=== PATIENT | female | born 1990 | race African-American/Black ===

== ENCOUNTER 2018-05-16 15:40 | Inpatient (IN) | payer SELFPAY ==
--- NOTE | 2018-05-16 16:28 | EDPHY ---
HPI/HX/ROS/PE/MDM Narrative: CHIEF COMPLAINT: Unable to bend right arm HISTORY OF PRESENT ILLNESS: The patient is a 28 y/o female complaining of difficulty bending her right arm due to swelling after working out on (2 days ago) and today. In 2014 she developed rhabdomyolysis in her arms after working out too much. After being diagnosed with rhabdo she was admitted to the hospital for one night and given fluids. She did not need surgery at that time. On , 2 days ago, she did not notice any significant pain after working out (TRX upper body workout). She then had a rest day on Friday but worked out today (primarily boxing). After working out today she noticed significant swelling and pain of her right upper arm and mild pain in her left arm. She has also had a tingling sensation in her right arm. Due to her history of rhabdo she decided to present to the emergency department. She is working out with a rehab trainer and primarily does body weight exercises. She does take NLA for Her pre-workout and recovery. Denies taking creatin and denies steroids. No fever, chills, chest pain, shortness of breath, palpitations, vomiting, diarrhea, urinary complaints, headache, lightheadedness. REVIEW OF SYSTEMS: Aside from elements discussed in the HPI, a comprehensive 10-point review of systems was reviewed and is negative. PAST MEDICAL HISTORY: Rhabdomyolysis SOCIAL HISTORY: Friend at bedside VITAL SIGNS: Reviewed by me GENERAL: Well-developed, well-nourished, resting comfortably in no respiratory distress. HEENT: Atraumatic. Eyes: No icterus, no injection. Mouth: moist mucous membranes. No erythema or lesions. Neck: supple with no adenopathy. LUNGS: Clear to auscultation bilaterally, no wheezes, rhonchi or rales. CARDIAC: Regular rate and rhythm, no rubs, murmurs or gallops. ABDOMEN: Soft, nontender, nondistended, bowel sounds normal. BACK: No CVA tenderness. EXTREMITIES: Swelling and firmness of the right biceps, soft. Compartments are soft. Biceps tendon intact on exam, good strength with biceps flexion. Unable to fully extend right arm at biceps due to pain. Pulses are equal distally. Brisk cap refill. Left arm: slight tenderness over the biceps, no significant swelling. Compartment soft. NEURO: Alert and oriented, grossly nonfocal. SKIN: Warm and dry, no rash. PSYCHIATRIC: Normal mentation, no agitation. Portions of this note were transcribed by a medical secretary receptionist. I personally performed a history, physical exam, medical decision making, and confirmed accuracy of information the transcribed note. ED Course: The patient is a 28 y/o female with a history of rhabdomyolysis complaining of a tingling sensation and difficulty flexing and extending her right arm due to swelling after doing an upper body work out on (2 days ago) and boxing workout today. On exam she has swelling and firmness of the right biceps, intact biceps tendon, normal strength with biceps flexion. Her pulses are equal distally. Labs ordered; 1L IV NS. CPK results from lab delayed due to dilution; suspect it will be significantly elevated. Second liter of NS ordered. 1814: Patient's creatinine is greater than 30,000. Advised patient and she understands need for admission. No tingling, numbness in right hand; brisk cap refill, compartments remain soft. 182: I consulted with the hospitalist service, Dr. Vergara accepts admission of this patient. 1824: I consulted with Dr. Gomez's, orthopedic surgeon, [place] regarding this patient. Asked to evaluate patient for compartment syndrome of upper extremity. They will consult this evening. MDM: Diff dx considered included but not limited to rhabdomyolysis, compartment syndrome, biceps tendon rupture, renal failure, muscle sprain, muscle tear. - Data Points Laboratory Results: Laboratory Results 05/16/18 17:00 05/16/18 17:00 Medications Given: Acetaminophen (Tylenol) 650 mg PO Q4HRS PRN PRN Reason: Pain, Mild/Fever, Can Take PO Stop: 11/12/18 20:16 Last Admin: 05/17/18 21:42 Dose: 650 mg Hydrocodone Bitart/Acetaminophen ([place] 5/325) 1 tab PO Q4HRS PRN PRN Reason: Pain, Moderate Able to Take PO Stop: 05/27/18 23:47 Last Admin: 05/17/18 23:53 Dose: 1 tab Sodium Chloride (Ns) 1,000 mls @ 200 mls/hr IV CONT LOUANN Stop: 11/12/18 20:29 Last Admin: 05/18/18 10:03 Dose: 1,000 mls Discontinued Medications Sodium Chloride (Ns) 1,000 mls @ 0 mls/hr IV ONCE ONE; Wide Open PRN Reason: Protocol Stop: 05/16/18 16:44 Last Admin: 05/16/18 17:05 Dose: 1,000 mls Sodium Chloride (Ns) 1,000 mls @ 0 mls/hr IV ONCE ONE; Wide Open PRN Reason: Protocol Stop: 05/16/18 18:04 Last Admin: 05/16/18 18:20 Dose: 1,000 mls Sodium Chloride (Ns) 1,000 mls @ 0 mls/hr IV ONCE ONE PRN Reason: Wide Open Stop: 05/16/18 20:26 Last Admin: 05/16/18 20:35 Dose: 1,000 mls General Time Seen by Provider: 05/16/18 16:25 Initial Vital Signs: Initial Vital Signs Temperature (C) 36.8 C 05/16/18 16:00 Heart Rate 91 05/16/18 16:00 Respiratory Rate 16 05/16/18 16:00 Blood Pressure 98/79 L 05/16/18 16:00 O2 Sat (%) 97 05/16/18 16:00 O2 Delivery Mode Room Air Allergies/Adverse Reactions: aloe vera Allergy (Intermediate, Verified 05/16/18 16:06) Swelling/neck,face,throat Home Medications: Medication Instructions Recorded NK [No Known Home Meds] 05/16/18 Departure - Departure Disposition: [facility] Inpatient Acute Clinical Impression: Rhabdomyolysis Qualifiers: Rhabdomyolysis type: traumatic Encounter type: initial encounter Qualified Code (s): T79.6XXA - Traumatic ischemia of muscle, initial encounter Condition: Fair Report Scribed for: Mandy Concepcion Report Scribed by: Rajwinder Madden Date of Report: 05/16/18 Time of Report: 16:28
[2018-05-16] MEDS ORDERED: NS 1,000 ML IV ONE ×3 (16:43→20:25)
[2018-05-16 17:13] LABS: PLATELET COUNT 181 10^3/uL (150-400)
[2018-05-16 18:16] LABS: CREATINE KINASE > 30000 IU/L (0-156)
--- NOTE | 2018-05-16 19:35 | PDCONSULT ---
Art Gallery Director Note: Orthopedic Surgery Consult Dr. Gomez was consulted by ER to examine Sherita Hernández. (See ER note for full detail) She presents to ER with Rhabdomyolysis. She has a sore and partially swollen right biceps. We were asked to examine biceps injury vs compartment syndrome. Of note patient states she had a similar episode of rhabdo a few years ago. Patient states she is feeling much better since her initial symptoms two days ago. She denies any CP, SOB, numbness or tingling of her fingers. PHYSICAL EXAM RUE mild swelling noted. Compartments appear soft. Distal neurovasculature is intact , and no concerning ligamint/muscle signs as she has full ROM shoulder elbow and wrist. ASSESSMENT: Rule out compartment syndrome. Right upper arm pain. Rhabdomyolysis PLAN: Dr. Gomez examined patient fully. No concerning signs for compartment syndrome at this time. No obvious biceps or tendon issues from exam. Would recommend resting from upper body workout for 1-2 weeks. She is being admitted to hospitalist team to treat her Rhabdo WE appreciate the consult, but no further orthopedic care is warranted at this time. Please reach out with any issues or concerns. Delano Rosa PA-C and Dr. Gomez (Orthopedic Surgery)
[2018-05-16] MEDS ORDERED: ONDANSETRON DISINTEGRATING 4 MG TAB PO PRN (20:17)
[2018-05-16] MEDS ORDERED: ONDANSETRON 4 MG/2 ML VIAL IVP PRN (20:17)
--- NOTE | 2018-05-16 21:32 | GHP ---
DATE OF ADMISSION: 05/16/2018 CHIEF COMPLAINT: Right arm pain, concern for rhabdomyolysis. HISTORY OF PRESENT ILLNESS: A 28-year-old female, who had an episode of rhabdomyolysis in 2014 due t o a vigorous workout. She worked on which was pretty significant and then tried to do some boxing today but she had a lot of right arm pain. She came to the emergency department because she h as had rhabdo in the past and this felt like it. She denies any other symptoms really. REVIEW OF SYSTEMS: A 10-point review of systems was obtained and negative. PAST MEDICAL HISTORY: Rhabdomyolysis. MEDICATIONS: None. SOCIAL HISTORY: No smoking or alcohol. FAMILY HISTORY: Negative. PHYSICAL EXAMINATION: VITAL SIGNS: Afebrile, blood pressure is 119/58, heart rate 74, oxygen satura tion 94% on room air. GENERAL: The patient is well developed, no apparent distress. HEENT: Nonict jesús sclerae. Extraocular movements intact. Moist mucous membranes. NECK: Supple. No thyromegaly . LUNGS: Good effort. Clear to auscultation bilaterally. CARDIOVASCULAR: Regular rate and rhythm . No murmurs, rubs, or gallops. ABDOMEN: Positive bowel sounds. Soft, nontender, nondistended. E XTREMITIES: Right biceps are more swollen than the left but compartment feels soft. NEUROLOGIC: Al ert and oriented x3. Moving all 4 extremities equally. PSYCH: Normal mood and affect. LABS: CBC is essentially normal. Chemistry does show slightly elevated creatinine 1.2. CK is over 30,000. ASSESSMENT: This is a 28-year-old female presenting with rhabdomyolysis. PLAN: She has already received 2 L in the ER. Give another L wide open, then will run isotonic flui ds at 300 cc an hour. We will continue to monitor creatinine. I did ask the lab to quantify her CPK starting in the morning to get a better idea of what direction she is going in. We will watch her jered dorman function carefully. /[id number]/MODL
[2018-05-16] MEDS: NS 1,000 ML IV SCH (21:45)
[2018-05-17] MEDS: NS 1,000 ML IV SCH ×2 (02:01→21:46)
[2018-05-17] MEDS: ACETAMINOPHEN 325 MG TAB PO PRN ×3 (02:09→21:42)
[2018-05-17 06:35] LABS: CREATINE KINASE 29391 IU/L (0-156)
--- NOTE | 2018-05-17 07:23 | PDMN ---
Medical Necessity Medical necessity: Pt meets inpt criteria per MD order and [facility] Musculoskeletal Disease, rhabdomyolysis, 2 days. 28 y/o w/hx rhabdomyolysis in 2014 presented w/R arm pain, admitted w/rhabdomyolysis, CK >30,000, CK-MB fraction 10.9, creatinine 1.2. IV fluids, ortho consut, follow labs/kidney function.
--- NOTE | 2018-05-17 13:53 | HOSPPROG ---
Hospitalist Progress Note Assessment/Plan: #Rhabdo: Cr improved, good UOP. Cont aggressive IVFs -advised caution with nutritional supplement #HAYLEE: improved with fluids #Diet: regular #Disp: inpatient admission for rhabo, IVFs Subjective: swelling right arm improved Objective: Vital Signs Temp Pulse Resp BP Pulse Ox 36.7 C 77 16 103/64 96 05/17/18 07:07 05/17/18 07:07 05/17/18 07:07 05/17/18 07:07 05/17/18 07:07 Laboratory Results 05/17/18 04:54 05/16/18 05/17/18 05/18/18 05:59 05:59 05:59 Intake Total 700 Output Total 1200 Balance -500 - Time Spent With Patient Time Spent with Patient: greater than 35 minutes Time Spent with Patient: Greater than 35 minutes spent on this patients care, greater than 50% of time spent counseling, educating, and coordinating care regarding the above mentioned plan. - Physical Exam Constitutional: no apparent distress Eyes: PERRL Ears, Nose, Mouth, Throat: moist mucous membranes Cardiovascular: regular rate and rhythym Respiratory: no respiratory distress Gastrointestinal: normoactive bowel sounds Genitourinary: no bladder fullness Skin: warm Musculoskeletal: full muscle strength, other (good radial pulse, normal cap refill. Right upper arm mildly swelling) Neurologic: AAOx3 Psychiatric: interacting appropriately ICD10 Worksheet Patient Problems: Problems Problem Status Onset Rhabdomyolysis Acute
--- NOTE | 2018-05-17 15:29 | ASMTCMCOM ---
CM Note CM Note Notes: Pt admitted to hospital for Rhadomyolysis, she is otherwise healthy and independent and will dc home whem medically stable. CM available for any changes. DC Plan: Independent Date Signed: 05/17/2018 03:29 PM Electronically Signed By:Leah Rabago RN
[2018-05-17] MEDS ORDERED: HYDROCODONE/APAP 10/325 TAB PO PRN (23:48)
[2018-05-17] MEDS ORDERED: HYDROCODONE/APAP 5/325 TAB PO PRN (23:48)
[2018-05-18] MEDS: NS 1,000 ML IV SCH ×4 (04:32→23:13)
[2018-05-18 06:16] LABS: CREATINE KINASE 22849 IU/L (0-156)
--- NOTE | 2018-05-18 09:30 | HOSPPROG ---
Hospitalist Progress Note Assessment/Plan: 28 yo F w rhabdomyolysis Rhabdo: Cr improved, good UOP. Cont aggressive IVFs advised caution with nutritional supplement HAYLEE: improved with fluids Diet: regular Disp: inpatient admission for rhabo, IVFs Subjective: CK trending down. less biceps pain Objective: Vital Signs Temp Pulse Resp BP Pulse Ox 36.8 C 60 14 122/84 H 95 05/18/18 08:00 05/18/18 08:00 05/18/18 08:00 05/18/18 08:00 05/18/18 08:00 Laboratory Results 05/18/18 04:57 05/17/18 05/18/18 05/19/18 05:59 05:59 05:59 Intake Total 700 7425 Output Total 1200 3000 600 Balance -500 4425 -600 - Physical Exam Constitutional: no apparent distress, appears nourished Eyes: PERRL, anicteric sclera Ears, Nose, Mouth, Throat: moist mucous membranes, hearing normal Cardiovascular: regular rate and rhythym, no murmur, rub, or gallop Respiratory: no respiratory distress, no rales or rhonchi Gastrointestinal: normoactive bowel sounds, soft, non-tender abdomen Genitourinary: no bladder fullness, No weston in urethra Skin: warm, normal color Musculoskeletal: other (R bicep soft. radial pulse 2+. good cap refill) Neurologic: AAOx3, sensation intact bilaterally ICD10 Worksheet Patient Problems: Problems Problem Status Onset Rhabdomyolysis Acute
[2018-05-19] MEDS: NS 1,000 ML IV SCH (04:13)
[2018-05-19 04:41] VITALS: BP 111/79
[2018-05-19 06:52] LABS: CREATINE KINASE 15546 IU/L (0-156)
--- NOTE | 2018-05-19 08:50 | HOSPPROG ---
Hospitalist Progress Note Assessment/Plan: 28 yo F w rhabdomyolysis Rhabdo: Cr improved, good UOP. Cont aggressive IVFs advised caution with nutritional supplement HAYLEE: improved with fluids Diet: regular Disp: home today > 30 minutes Subjective: ck < 20. renal function normal Objective: Vital Signs Temp Pulse Resp BP Pulse Ox 36.7 C 52 L 15 111/79 96 05/19/18 04:39 05/19/18 04:39 05/19/18 04:39 05/19/18 04:39 05/19/18 04:39 Laboratory Results 05/19/18 05:58 05/18/18 05/19/18 05/20/18 05:59 05:59 05:59 Intake Total 7425 3580 Output Total 3000 4400 Balance 4425 -820 - Physical Exam Constitutional: no apparent distress, appears nourished Eyes: PERRL, anicteric sclera Ears, Nose, Mouth, Throat: moist mucous membranes, hearing normal Cardiovascular: regular rate and rhythym, no murmur, rub, or gallop Respiratory: no respiratory distress, no rales or rhonchi Gastrointestinal: normoactive bowel sounds, soft, non-tender abdomen Genitourinary: No weston in urethra Skin: warm Musculoskeletal: other (R bicep soft) Neurologic: AAOx3 ICD10 Worksheet Patient Problems: Problems Problem Status Onset Rhabdomyolysis Acute
--- NOTE | 2018-05-19 10:21 | GDS ---
[f rep st] DISCHARGE SUMMARY DISCHARGE DIAGNOSES: 1. Rhabdomyolysis. 2. Acute kidney injury. HOSPITAL COURSE: Please see admission history and physical by Dipak Vergara. Patient had biceps pain a nd some concern for compartment syndrome. She was seen by Orthopedics who felt this is not going on. She had a creatinine of 1.2, with normal baseline. She was hydrated. CK trended down. It was 15, 000 on the day of discharge. Creatinine was less than 1. Discharged home. She had been taking a woodall pplement called NLAforHer, which is a body building supplement and has a great deal of stimulants in it. She was advised to discontinue. No other home medicines. /[id number]/MODL
--- NOTE | 2018-05-19 10:50 | ASMTDCNOTE ---
Case Management Discharge Discharge Order Complete? Answers: Yes Patient to Obtain Answers: Independently Medications Transportation Arranged Answers: Family/Friends Discharge Comments Notes: Patient is discharging home independently today. No further needs. Date Signed: 05/19/2018 10:49 AM Electronically Signed By:Candida Bell LCSW
--- NOTE | 2018-05-19 11:01 | ASDISCHSUM ---
Discharge Information Plan Status:Home with No Needs Medically Cleared to Leave:05/18/2018 Discharge Date:05/18/2018 CM D/C Disposition:Home, Routine, Self-Care ADT D/C Disposition: Projected Discharge Date:05/19/2018 12:00 AM Transportation at D/C:Family Discharge Delay Reason: Follow-Up Date:05/19/2018 12:00 AM Discharge Slot:2 - 12:01 pm - 18:00 pm Final Diagnosis:Rhabdomyolysis Placement Information Patient Contact Information Contact Name:VICTORIA Relationship:Mother Address: Work Phone: City: [facility] Phone: [facility]/Zip Code: Email: Financial Information Financial Class:Self-Pay Primary Plan Desc:SELF PAY Primary Plan Number: Secondary Plan Desc: Secondary Plan Number: Assessment Information LACE LACE Length of stay for Answers: 3 days current admission Acuity / Level of Answers: Yes Care: Did the patient have an inpatient admission? Comorbidities - select Answers: Other Notes: Rhadomyolysis all that apply Score: 7 Date Signed: 05/19/2018 10:58 AM Electronically Signed By:Candida Bell LCSW [facility] Progress Note CM Note CM Note Notes: Pt admitted to hospital for Rhadomyolysis, she is otherwise healthy and independent and will dc home whem medically stable. CM available for any changes. DC Plan: Independent Date Signed: 05/17/2018 03:29 PM Electronically Signed By:Leah Rabago RN Case Management Discharge Plan Note Case Management Discharge Discharge Order Complete? Answers: Yes Patient to Obtain Answers: Independently Medications Transportation Arranged Answers: Family/Friends Discharge Comments Notes: Patient is discharging home independently today. No further needs. Date Signed: 05/19/2018 10:49 AM Electronically Signed By:Candida Bell LCSW Intervention Information Intervention Type:*Incorrect Registration Date of Service:05/17/2018 07:25 AM Patient Type:Inpatient Staff Member:RACHELL Davidson, Lala Hours: Discipline: Severity: Comment:
== END 2018-05-19 11:01 | disposition home or self-care (01) | DRG 565 ==
LOC: F3E 20:08 → OBSVTOIN 20:19
PROVIDERS: ADMIT Internal Medicine; ATTEND Internal Medicine
DX: T79.6XXA Traumatic ischemia of muscle, initial encounter (principal); N17.9 Acute kidney failure, unspecified; E86.9 Volume depletion, unspecified; X50.0XXA Overexertion from strenuous movement or load, initial encounter

== ENCOUNTER 2018-05-20 03:33 | Observation (INO) | payer SELFPAY ==
--- NOTE | 2018-05-20 03:39 | EDPHY ---
H & P Source: Patient - Medical/Surgical History Hx Asthma: No Hx Chronic Respiratory Disease: No Hx Diabetes: No Hx Cardiac Disease: No Hx Renal Disease: No Hx Cirrhosis: No Hx Alcoholism: No Hx HIV/AIDS: No Hx Splenectomy or Spleen Trauma: No Other PMH: Hx Rhabdo. denies otherwise. - Social History Smoking Status: Former smoker Time Seen by Provider: 05/20/18 03:47 HPI/ROS: HPI CHIEF COMPLAINT: Right arm swelling. HISTORY OF PRESENT ILLNESS: 28-year-old female, recently discharged, was initially admitted on the 16 of May it is now the 20 of May. She was admitted for rhabdomyolysis after vigorous workout, as well as acute kidney injury. Her initial CK was 30,000. She was hydrated vigorously did very well. She was also seen evaluated by Orthopedics for possible compartment syndrome of her right bicep region however they did not feel this was compartment syndrome. She presents back to the emergency room tonight out of concern for right arm. She states that it felt tighter and then releases at times. She denies any numbness or tingling, denies severe pain. She states her arm is about the same size it was when she was discharged yesterday. She decided come back to the emergency room tonight as she was told return precautions and that if her arm felt tighter to immediately return. Here in the ER she arrives she appears well nontoxic denies any significant pain. Her right arm is neurovasculary intact with good sensation distally, good radial pulse 2 +, when I palpate down her entire arm her compartments are soft. Her right arm is swollen but very soft. Compartments feel soft. No significant tenderness with exam. Sensations intact distally. She is able to furnace brazer strength appropriately. Past Medical History: Recent admission for rhabdomyolysis, acute kidney injury Past Surgical History: No recent surgery Social History: A lives locally denies drugs alcohol tobacco. Family History: Noncontributory ROS REVIEW OF SYSTEMS: 10 Systems were reviewed and negative with the exception of the elements mentioned in the history of present illness. Exam Constitutional triage nursing summary reviewed, vital signs reviewed, awake/ alert. Eyes normal conjunctivae and sclera, EOMI, PERRLA. HENT normal inspection, atraumatic, moist mucus membranes, no epistaxis, neck supple/ no meningismus, no raccoon eyes. Respiratory clear to auscultation bilaterally, normal breath sounds, no respiratory distress, no wheezing. Cardiovascular rate normal, regular rhythm, no murmur, no edema, distal pulses normal. Gastrointestinal soft, non-tender, no rebound, no guarding, normal bowel sounds, no distension, no pulsatile mass. Genitourinary no CVA tenderness. Musculoskeletal RUE: Her right arm is neurovascular intact with good sensation distally, good radial pulse 2 +, when I palpate down her entire arm her compartments are soft. Her right arm is swollen but very soft. Compartments feel soft. No significant tenderness with exam. Sensations intact distally. She is able to furnace brazer strength appropriately. no midline vertebral tenderness, full range of motion, no calf swelling, no tenderness of extremities, no meningismus, good pulses, neurovascularly intact. Skin pink, warm, & dry, no rash, skin atraumatic. Neurologic awake, alert and oriented x 3, AAOx3, moves all 4 extremities equally, motor intact, sensory intact, CN II-XII intact, normal cerebellar, normal vision, normal speech. Psychiatric normal mood/affect. Heme/Lymph/Immune no lymphadenopathy. Differential Diagnosis: Includes but is not limited to in a particular order compartment syndrome, anxiety, rhabdomyolysis, acute kidney injury Medical Decision Making: Plan for this patient will establish an IV in her left arm, check a CK level, check creatinine. I will additionally touch base with Orthopedics as they saw her during hospitalization. Re-evaluation: Creatinine is 0.9 on her chemistry. CK level is 14K+ 0640AM: Discussed this case in detail with Dr. Briceño. Given the patient's exam right upper extremity he believes that compartment syndrome is very unlikely. She has good distal pulse, good cap refill, warm extremity, no numbness or tingling, soft compartments on exam, no significant pain. 0737: I discussed with the patient about what she is comfortable doing and she is agreeable to stay in the hospital for observation her CK is still over 14,000 , her right arm is soft, good distal pulse good cap refill, warm extremity. I will obtain a ultrasound of her right upper extremity rule out DVT. 0750: Hospitalist service consulted. Plan for admission for right upper extremity swelling and ongoing rhabdomyolysis. Spoke with Dr. Chucho Moreland to admit. Ultrasound of the right upper extremity pending for rule out DVT. (Lawson Ricci) Constitutional: Initial Vital Signs Temperature (C) 36.9 C 05/20/18 03:47 Heart Rate 66 05/20/18 03:47 Respiratory Rate 18 05/20/18 03:47 Blood Pressure 129/90 H 05/20/18 03:47 O2 Sat (%) 99 05/20/18 03:47 O2 Delivery Mode Room Air Allergies/Adverse Reactions: aloe vera Allergy (Intermediate, Verified 05/16/18 16:06) Swelling/neck,face,throat Home Medications: Medication Instructions Recorded Acetaminophen [Tylenol 325mg (*)] 325 mg PO Q6 PRN 05/20/18 Medical Decision Making - Diagnostics Imaging Results: Ultrasound of the right upper extremity shows no evidence for DVT. Reviewed by me and discussed with Dr. Torres (Matias Aldana) - Data Points Laboratory Results: Laboratory Results 05/20/18 04:00 Medications Given: Sodium Chloride (Ns) 1,000 mls @ 75 mls/hr IV CONT LOUANN Stop: 11/16/18 09:14 Last Admin: 05/20/18 11:05 Dose: 1,000 mls Discontinued Medications Sodium Chloride (Ns) 1,000 mls @ 0 mls/hr IV ONCE ONE PRN Reason: Wide Open Stop: 05/20/18 06:47 Last Admin: 05/20/18 06:48 Dose: 1,000 mls Departure - Departure Disposition: [facility] Inpatient Acute Clinical Impression: Swelling of right upper extremity Rhabdomyolysis Qualifiers: Rhabdomyolysis type: non-traumatic Qualified Code(s): M62.82 - Rhabdomyolysis Condition: Fair
[2018-05-20 05:04] LABS: CREATINE KINASE 14928 IU/L (0-156)
[2018-05-20] MEDS ORDERED: NS 1,000 ML IV ONE (06:46)
[2018-05-20] MEDS ORDERED: ONDANSETRON 4 MG/2 ML VIAL IVP PRN (09:01)
[2018-05-20] MEDS ORDERED: ONDANSETRON DISINTEGRATING 4 MG TAB PO PRN (09:01)
[2018-05-20] MEDS ORDERED: oxyCODONE IR 5 MG TAB PO PRN (09:01)
[2018-05-20] MEDS ORDERED: ACETAMINOPHEN 325 MG TAB PO PRN (09:01)
--- NOTE | 2018-05-20 09:30 | GHP ---
[f rep st] HISTORY AND PHYSICAL DATE OF ADMISSION: 05/20/2018 The patient is a pleasant 28-year-old female with a recent admission for rhabdomyolysis, in fact had discharged her yesterday with a CK of 15,500. She has pain and swelling of her right upper extremity , notably the biceps. The etiology was reported to be supplement use in the setting of workouts. Romelia thomason is discharged to home and did well but then developed increased swelling and pain in her right uppe r extremity. She did not work out. It is not clear that she was fully elevating it. She did receive aggressive IV fluids while here. No fever, chills, cough, vomiting and diarrhea. No weakness in her hand. REVIEW OF SYSTEMS: Complete 10-point review of systems conducted and negative except as noted in the HPI. PAST MEDICAL HISTORY: Rhabdomyolysis. ALLERGIES: Aloe vera. HOME MEDICATIONS: Tylenol. SOCIAL HISTORY: No alcohol, no drugs. No tobacco. FAMILY HISTORY: Reviewed and unremarkable. PHYSICAL EXAMINATION: VITAL SIGNS: Temp 36.9, blood pressure 129/90, pulse 66, breathing 18 times a minute, 99% on room air. GENERAL: No acute distress. HEENT: Sclerae anicteric. Oropharynx clear. Mucous membranes moist. NECK: Supple without lymphadenopathy or JVD. LUNGS: Clear to auscultation bilaterally. HEART: S1, S2. ABDOMEN: Soft, nontender, nondistended. EXTREMITIES: The lower extre mities are without edema. Her right upper extremity is edematous but soft. It is not firm. It is n ot exquisitely tender. She has capillary refill that is equal on the right and left hand. Her radia l pulse is somewhat faint on both sides, but equivocal on both sides. There are no skin changes. LABORATORY DATA: Sodium 140, potassium 3.7, chloride 112, bicarb 24, BUN 7, creatinine 0.9, CK is 1 4,928, which is decreased. Right upper extremity ultrasound shows no evidence of DVT. I have discus sed the case with Dr. Lawson Ricci. ASSESSMENT AND PLAN: A 28-year-old female with ongoing rhabdomyolysis and pain. 1. Query compartment syndrome. I do not believe that this patient has compartment syndrome. I thin k that measuring tissue pressures is unnecessary and will elevate it. 2. Rhabdomyolysis. Continue gentle IV fluids and follow. I suspect her CK will continue to trend d own. This is at this point somewhat past the risk of kidney injury. 3. Hypertension, present on admission, has resolved. We will follow. DISPOSITION: Observation status. /[id number]/MODL
[2018-05-20] MEDS: NS 1,000 ML IV SCH ×2 (09:53→11:05)
[2018-05-20 16:17] LABS: CREATINE KINASE 10937 IU/L (0-156)
[2018-05-21 07:31] VITALS: BP 105/69
--- NOTE | 2018-05-21 10:46 | PDDCSUM ---
Discharge Summary Discharge Summary: Date of Admission: 05/20/2018 Date of Discharge: 05/21/2018 Studies: 1. RUE venous ultrasound - negative for DVT Discharge Diagnoses: 1. Right arm pain 2. Rhabdomyolysis, resolving 3. Elevated BP, resolved Brief Hospital Course: 28yo F who was just discharged from this hospital yesterday for rhabdomyolysis presented with ongoing right arm pain and swelling. The etiology of her rhabdo was felt due to supplement use in the setting of workout. Her CK was continuing to down-trend and renal function was normal. She did not have evidence of compartment syndrome. Her arm pain and swelling improved with elevation. She was discharged and encouraged to continue elevation. Medications: Please refer to EMR. No changes were made. Follow Up Plan: 1. Advised to refrain from using supplements 2. Establish with PCP Physical Exam: Vitals reviewed, stable. Alert and oriented, rrr without m/r/g, lungs clear, abdomen soft, no rashes, mild RUE edema that is improving per patient report, 2+ RUE radial pulse, sensation to light touch and muscle strength intact in RUE.
== END 2018-05-21 12:10 | disposition home or self-care (01) ==
LOC: F2W 11:00
PROVIDERS: ADMIT Internal Medicine; ATTEND Internal Medicine
DX: M62.82 Rhabdomyolysis (principal); M79.601 Pain in right arm; R22.31 Localized swelling, mass and lump, right upper limb; R03.0 Elevated blood-pressure reading, without diagnosis of hypertension; Z87.891 Personal history of nicotine dependence
CPT/HCPCS: G0378